=== PATIENT | female | born 1960 | race Caucasian/White ===

== ENCOUNTER 2016-12-13 21:00 | Emergency (ER) | payer MEDICARE, OTHER ==
[~2016-12-13] VITALS: Ht 165.1 cm; Wt 35.4 kg
[2016-12-13] MEDS ORDERED: LISINOPRIL10 MG PO (21:20)
[2016-12-13] MEDS ORDERED: DULOXETINE HCL60 MG PO (21:21)
[2016-12-13] MEDS ORDERED: ALPRAZOLAM1 MG PO (21:21)
[2016-12-13] MEDS ORDERED: SULINDAC200 MG PO (21:22)
[2016-12-13] MEDS ORDERED: OXYCODONE-ACET1 EAC1 PO (21:22)
[2016-12-13] MEDS ORDERED: MOMETASONE FURO45 GM TOP (21:23)
[2016-12-13] MEDS ORDERED: OMEPRAZOLE20 MG PO (21:23)
[2016-12-13] MEDS ORDERED: STOOL SOFTENER1 EAC2 PO (21:24)
[2016-12-13] MEDS ORDERED: FLEET ENEMA133 ML PR (21:25)
[2016-12-13] MEDS ORDERED: CITRATE OF MAG300 ML PO (21:26)
== END 2016-12-14 02:52 | disposition home or self-care (01) ==
LOC: ED 21:00
DX: K59.00 Constipation, unspecified (principal); G35 Multiple sclerosis; K21.9 Gastro-esophageal reflux disease without esophagitis; Z98.51 Tubal ligation status; Z79.899 Other long term (current) drug therapy
CPT/HCPCS: 74000; 99283

== ENCOUNTER 2019-05-09 11:41 | Emergency (ER) | payer MEDICARE, OTHER ==
[~2019-05-09] VITALS: Ht 165.1 cm; Wt 38.6 kg
[~2019-05-09 11:41] MED LIST: ALPRAZOLAM1 MG PO; CITRATE OF MAG300 ML PO; DULOXETINE HCL60 MG PO; FLEET ENEMA133 ML PR; LISINOPRIL10 MG PO; MOMETASONE FURO45 GM TOP; OMEPRAZOLE20 MG PO; OXYCODONE-ACET1 EAC1 PO; STOOL SOFTENER1 EAC2 PO; SULINDAC200 MG PO
--- OUTSIDE RECORDS SUMMARY | 2019-05-09 11:44 | XMS ---
PreManage Notification: CLINTON MCKEON Security [place] Actor Events No recent Security Events currently on file CRITERIA MET - [facility] PROVID[facility] Iris Ariza Medical Service Technician/Certified Ophthalmic Technician 10/13/2016-Current PHONE: [phone] [facility] 10/13/2016-Current PHONE: [phone] GUTIERREZ [facility] 02/12/2015-Carla TELLEZ PHONE: Unknown Junito has no Care Guidelines for this patient. E.D. VISIT COUNT (12 MO.) 1 [facility] Head TOTAL 1 NOTE: Visits indicate total known visits. ED/UCC VISIT TRACKING (12 MO.) 05/09/2019 11:41 [facility] Felipe OR TYPE: Emergency COMPLAINT: - DENTAL PAIN INPATIENT VISIT TRACKING (12 MO.) No inpatient visits to display in this time frame [email or web address]
[2019-05-09] MEDS ORDERED: PENICILLIN V P500 MG PO (12:30)
[2019-05-09] MEDS ORDERED: NORCO 5-325 TA1 EACH PO (12:30)
[2019-05-09] MEDS ORDERED: ORAL ANESTHETIC12 GM MM (13:22)
== END 2019-05-09 13:36 | disposition home or self-care (01) ==
LOC: ED 11:41
DX: K08.89 Other specified disorders of teeth and supporting structures (principal); K21.9 Gastro-esophageal reflux disease without esophagitis; Z79.899 Other long term (current) drug therapy
CPT/HCPCS: 99283